=== PATIENT | female | born 1945 | race Caucasian/White ===

== ENCOUNTER 2020-10-01 20:42 | Emergency (ER) | payer OTHER ==
--- OUTSIDE RECORDS SUMMARY | 2020-10-01 20:46 | XMS REPORT | Continuity of Care Document ---
:1945 Author Organization [facility] t Address [address] [place] [address] Care Team Providers Name Role Phone MARITZA SANCHES Primary Care Physician Unavailable José Rubio Attending Clinician Cintia Attending Clinician CINTIA Attending Clinician Unavailable Aleks Sepulveda Attending Clinician CINTIA Admitting Clinician Unavailable Problems Condition Condition Condition Status Onset Resolution Last Treating Co mments Source Name Details Category Date Date Treatment Clinician Date UNK Diagnosis Active 2018-11-10 Mem oria 10-13 09:40:00 l UNK 00:00: [place] 00 Active 10/13/2018 [place] M85.80 - Diagnosis Active 2017-062018-09-19 M emoria OTH DISRD 0-06 15:09:00 l OF BONE M85.80 - 00:01: Kristina nn DENSITY OTH DISRD 00 AND OF BONE DENSITY AND Active 03/14/2018 MH MAC Wilson N95.2 - Diagnosis Active 2017-02-12 Me moria POSTMENOPA 8- 13:32:00 l USAL N95.2 - 00:01: [place] ATROPHIC POSTMENOPA 00 VAGINI N USAL ATROPHIC VAGINI N Active 01/30/2017 MH MAC Wilson V76.11 - Diagnosis Active 2012-03-07 M emoria SCREEN 7-24 16:15:00 l MAMMOGRA V76.11 - 00:01: Herm emelina SCREEN 00 MAMMOGRA Active 12/31/2011 OPID Friendswoo d, OPID [place] Asymptomat Problem 2018-10-21 M emoria ic 12:43:43 l menopausal Sean n state Asymptomat ic menopausal state 10/21/2018 [facility] [place] Dorsalgia, Problem 2018-10-21 M emoria unspecifie 12:43:43 l d [place] Dorsalgia, unspecifie d 10/21/2018 [facility] [place] Spinal Problem 2018-10-21 Memor ia stenosis, 12:43:43 l lumbar Spinal Bassem region stenosis, without lumbar neurogenic region claudicati without on neurogenic claudicati on [facility]21[facility] [place] Acute Problem Resolve 2018-11-11 Jimy shirley cholecysti d 23:11:20 l tis Acute Bassem (disorder) cholecysti tis (disorder) Resolved Problem 11/11/2018 [facility] 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 23:11:20 l of skin Basal [place] (disorder) cell carcinoma of skin (disorder) Resolved Problem 11/11/2018 [facility] Diverticul Problem Resolve 2018-11-11 Memoria itis d 23:11:20 l (disorder) Sean n Diverticul itis (disorder) Resolved Problem 11/11/2018 [facility] Hemorrhoid Problem Resolve 2018-11-11 Memoria s d 23:11:20 l (disorder) Sean n Hemorrhoid s (disorder) Resolved Problem 11/11/2018 [facility] History of Problem Resolve 2018-11-11 Memoria bowel d 23:11:20 l obstructio History Her elam n of bowel (situation obstructio ) n (situation ) Resolved Problem 11/11/2018 [facility] History of Problem Resolve 2018-11-11 Memoria methicilli d 23:11:20 l n History [place] resistant of Staphyloco methicilli ccus n aureus resistant infection Staphyloco (situation ccus ) aureus infection (situation ) Resolved Problem 11/11/2018 [facility] History of Problem Resolve 2018-11-11 Memoria squamous d 23:11:20 l cell History [place] carcinoma of of skin squamous (situation cell ) carcinoma of skin (situation ) Resolved Problem 11/11/2018 [facility] Metatarsop Problem Resolve 2018-11-11 Memoria halangeal d 23:11:20 l joint Bassem stiff Metatarsop (finding) halangeal joint stiff (finding) Resolved Problem 11/11/2018 [facility] Polyp of Problem Resolve 2018-11-11 Me moria colon d 23:11:20 l (disorder) Polyp of He rmann colon (disorder) Resolved Problem 11/11/2018 [facility] Anxiety Problem Active 2018-11-11 Jimy shirley (finding) 23:11:20 l Anxiety [place] (finding) Active Problem 11/11/2018 [facility] Atrial Problem Active 2018-11-11 Memor ia fibrillati 23:11:20 l on Atrial [place] (disorder) fibrillati on (disorder) Active Problem 11/11/2018 [facility] Chronic Problem Active 2018-11-11 Jimy shirley low back 23:11:20 l pain Chronic [place] (disorder) low back pain (disorder) Active Problem 11/11/2018 [facility] Gastroesop Problem Active 2018-11-11 M emoria hageal 23:11:20 l reflux Bassem disease Gastroesop (disorder) hageal reflux disease (disorder) Active Problem 11/11/2018 [facility] Hypertensi Problem Active 2018-11-11 M emoria ve 23:11:20 l disorder, [place] systemic Hypertensi arterial ve (disorder) disorder, systemic arterial (disorder) Active Problem 11/11/2018 [facility] Hypothyroi Problem Active 2018-11-11 emoria dism 23:11:20 l (disorder) Sean n Hypothyroi dism (disorder) Active Problem 11/11/2018 [facility] Peripheral Problem Active 2018-11-11 M emoria vascular 23:11:20 l disease [place] (disorder) Peripheral vascular disease (disorder) Active Problem 11/11/2018 [facility] Urinary Problem Active 2018-11-11 Jimy shirley incontinen 23:11:20 l ce Urinary [place] (finding) incontinen ce (finding) Active Problem 11/11/2018 [facility] History of Past Illness Condition Condition Condition Status Onset Resolution Last Treating Co mments Source Name Details Category Date Date Treatment Clinician Date Other Problem 2017-062018-10-21 2018-10-21 M emoria specified - 12:43:43 12:43:43 l disorders Other 06:11: Sean n of bone specified 02 density disorders and of bone structure, density unspecifie and d site structure, unspecifie d site 04/28/2018 10/21/2018 MAC [place] Allergies, Adverse Reactions, Alerts Allergy Allergy Status Severity Reaction(s) Onset Inactive Treating Comm ents Source Name Type Date Date Clinician sulfa sulfa Active Memoria drugs drugs l [place] Levaquin Levaquin Active Memori a l [place] Bactrim Adverse Active Info Not [facility] Reaction Available [facility] Social History Social Habit Start Date Stop Date Quantity Comments Source Social History 2018-11-03 2018-11-03 [facility] 18:23:19 18:23:19 Medications Ordered Filled Start Stop Current Ordering Indication Dosage Frequency Signature Comments Components Source Medication Medication Date Date Medication? Clinician (SIG) Name Name Oxycodone 2019-0 No 5 mg, 1 Memor ia Hydrochlori 6-03 tab, l de 5 MG 18:07: Route: PO, Herm emelina Oral Tablet 00 POST OP, Dosing Weight 110.818, kg, Start date: 11/09/18 13:07:00 CDT, Duration: 30 day, Stop date: 12/09/18 13:06:00 CDT Ondansetron 2019-0 No 4 mg, Memor ia 6- Route: l 17:17: IVP, ONCE, Dosing Weight 110.818, kg, PRN Nausea & Vomiting, Start date: 11/09/18 12:17:00 CDT Oxycodone 2019-0 No 10 mg, Memori a Hydrochlori 6- Route: PO, l de 5 MG 17:17: Drug form: Herm emelina Oral Tablet 00 TAB, Q4H, Dosing Weight 110.818, kg, PRN Pain Score 7-10, Start date: 11/09/18 12:17:00 CDT, Duration: 30 day, Stop date: 12/09/18 12:16:00 CDT Flumazenil 2019-0 No 0.2 mg, Jimy shirley 6- Route: l 17:17: IVP, PRN, Dosing Weight 110.818, kg, PRN Benzodiaze pine Reversal, Initial dose, Start date: 11/09/18 12:17:00 CDT, Duration: 30 day, Stop date: 12/09/18 12:16:00 CDT Naloxone 2019-0 No 0.4 mg, Memori a 11-09 Route: l 17:17: IVP, Bassem 00 Q2MIN, Dosing Weight 110.818, kg, PRN Narcotic Reversal, Start date: 11/09/18 12:17:00 CDT, Duration: 8 doses or times, Stop date: Limited # of times Fentanyl 2019-0 No 25 Memoria 6-03 microgram, l 17:17: Route: IVP, Q5Min, Dosing Weight 110.818, kg, PRN Pain Score 4-6, Priority: Routine, Start date: 11/09/18 12:17:00 CDT, Duration: 4 doses or times, Stop date: Limited # of times neostigmine 2018- No Route: IV, Memoria (ANES) 11-09 Drug form: l 17:05: INJ, ONCE, Stop date: 11/09/18 12:05:00 CDT glycopyrrol 2018-0 No Route: IV, Memoria ate (ANES) 11-09 Drug form: l 17:05: INJ, ONCE, Stop date: 11/09/18 12:05:00 CDT ondansetron 2018-0 No Route: IV, Memoria (ANES) 11-09 Drug form: l 16:36: INJ, ONCE, Stop date: 11/09/18 11:36:00 CDT dexamethaso 2018-0 No Route: IV, Memoria ne (ANES) 11-09 Drug form: l 16:36: INJ, ONCE, Stop date: 11/09/18 11:36:00 CDT fentaNYL 2018-0 No Route: IV, Mem oria (ANES) 11-09 Drug form: l 16:31: INJ, ONCE, Stop date: 11/09/18 11:31:00 CDT acetaminoph 2018-0 No Route: IV, Memoria en (ANES) 11-09 Drug form: l 15:35: INJ, ONCE, Stop date: 11/09/18 10:35:00 CDT fentaNYL 2019-0 No Route: IV, Mem oria (ANES) 11-09 Drug form: l 15:30: INJ, ONCE, Stop date: 11/09/18 10:30:00 CDT lidocaine 2018-0 No Route: IV, moria (ANES) 11-09 Drug form: l 15:20: INJ, ONCE, [place] Stop date: 11/09/18 10:20:00 CDT rocuronium 2018-0 No Route: IV, M emoria (ANES) 11-09 Drug form: l 15:20: INJ, ONCE, Stop date: 11/09/18 10:20:00 CDT propofol 2019-0 No Route: IV, Mem oria (ANES) 11-09 Drug form: l 15:20: INJ, ONCE, Stop date: 11/09/18 10:20:00 CDT ceFAZolin 2018- No Route: IV, Me moria (ANES) 11-09 Drug form: l 15:05: INJ, ONCE, Stop date: 11/09/18 10:05:00 CDT midazolam 2018-0 No Route: IV, moria (ANES) 11-09 Drug form: l 15:00: SOLN, ONCE, Stop date: 11/09/18 10:00:00 CDT Calcium 2018-0 No 1,000 mL, Memor ia Chloride 11-09 Rate: 75 l 0.0014 14:32: ml/hr, MEQ/ML / 00 Infuse Potassium over: 13.3 Chloride hr, Route: 0.004 IV, Dosing MEQ/ML / Weight Sodium 110.818 Chloride kg, Total 0.103 Volume: MEQ/ML / 1,000, Sodium Start Lactate date: 0.028 11/09/18 MEQ/ML 9:32:00 Injectable CDT, Solution Duration: 30 day, Stop date: 12/09/18 9:31:00 CDT, 2.29, m2 Lactated No Route: IV, Mem oria Ringers 11-09 Total l Injection 14:29: Volume: Kristina nn IV (ANES) 00 1,000, 1000 mL Start date: 11/09/18 9:29:00 CDT, Stop date: 11/09/18 10:29:00 CDT pantoprazol 2018-0 Yes 40 mg = 1 M emoria e 40 mg 5-28 tab, PO, l oral 20:06: Daily, # [place] enteric 00 30 tab, 0 coated Refill(s) tablet tizanidine Yes 2 mg = 1 Mem oria 2 mg oral 5-28 cap, PO, l capsule 20:06: Bedtime, Sean n 00 PRN for muscle spasm, # 30 cap, 0 Refill(s) valacyclovi Yes 1,000 mg, M emoria r 5-28 PO, TID, # l 20:06: 21 tab, 0 Bassem 00 Refill(s) montelukast Yes 10 mg = 1 M emoria 10 mg oral 5-28 tab, PO, l tablet 20:06: Bedtime, # Kristina nn 00 30 tab, 0 Refill(s) sertraline Yes 50 mg = 1 Me moria 50 mg oral 5-28 tab, PO, l tablet 20:05: Daily, # Bassem 00 30 tab, 0 Refill(s) levothyroxi Yes 88 Memori a ne 88 mcg 5-28 microgram l (0.088 mg) 20:05: = 1 tab, Her elam oral tablet 00 PO, Daily, # 30 tab, 0 Refill(s) Hydrochloro Yes 25 mg = 1 M emoria thiazide 25 5-28 tab, PO, l MG Oral 20:04: Daily, # Sean n Tablet 00 30 tab, 0 Refill(s) amLODIPine Yes 10 mg = 1 Me moria 10 mg oral 5-28 tab, PO, l tablet 20:04: Bedtime, 0 Kristina nn 00 Refill(s) metoprolol 2019 Yes 50 mg = 1 Me moria tartrate 50 5-28 tab, PO, l mg oral 20:04: BID, # 60 Kristina nn tablet 00 tab, 0 Refill(s) benazepril Yes 40 mg = 1 Me moria 40 mg oral 5-28 tab, PO, l tablet 20:03: Daily, # [place] 00 30 tab, 0 Refill(s) Pantoprazol Pantoprazol Yes Marivel [address] [facility] e Sodium e Sodium [facility] Amlodipine Amlodipine Yes Marivel [address] [facility] Besylate Besylate [facility] Nitrofurant Nitrofurant Yes Marivle [address] [facility] oin oin [facility] with food [facility]rysta Macrocrysta or milk [facility] Zanaflex Zanaflex Yes Marivel [address] [facility] as needed [facility] Hydrochloro Hydrochloro Yes Marivel [address] [facility] thiazide thiazide [place] in [facility] Benazepril Benazepril Yes Marivel [address] [facility] HCl HCl [facility] Singulair Singulair Yes Marivel [address] [facility] [place] [facility] Zoloft Zoloft Yes Marivel [address] [facility] [place] [facility] Gabapentin Gabapentin Yes Marivel [address] [facility] [place] [facility] Metoprolol Metoprolol Yes Marivel [address] [facility] [address] Tartrate Tartrate [place] with food [facility] Vital Signs Vital Name Observation Time Observation Value Comments Source Systolic (mm Hg) 2018-11-09 19:00:00 Jimy rial [place] Diastolic (mm Hg) 2018-11-09 19:00:00 Mem orial [place] Systolic (mm Hg) 2018-11-09 18:45:00 Jimy rial [place] Diastolic (mm Hg) 2018-11-09 18:45:00 Mem orial [place] Systolic (mm Hg) 2018-11-09 18:30:00 Jimy rial [place] Diastolic (mm Hg) 2018-11-09 18:30:00 Mem orial [place] Respitory Rate 2018-11-09 17:45:00 Grey al [place] Respitory Rate 2018-11-09 17:30:00 Grey Morenoann Respitory Rate 2018-11-09 17:15:00 Grey Mckay Temperature Oral (F) 2018-11-03 20:00:00 98.0 F Sarita Luevano Heart Rate 2018-11-03 20:00:00 Sariat Luevano BMI Calculated 2018-11-03 18:32:00 Membraden al [place] Weight 2018-11-03 18:32:00 [facility] [place] Height 2018-11-03 18:32:00 165.1 cm [facility] [place] Procedures Procedure Date / Time Performing Source Performed Clinician Cardiac catheterization [facility] Cataract extraction [facility] Cholecystectomy [facility] Colonoscopy [facility] Esophagogastroduodenoscopy Memor ial [place] Foot incision [facility] Hysterectomy [facility] [place] Incision and drainage of Memoria l [place] abscess<sup>1</sup> Lateral release of [facility] emelina knee<sup>2</sup> Total knee replacement [facility] Encounters Start End Encounter Admission Attending Care Care Encounter Source Date/Time Date/Time Type Type Clinicians Facility Department ID 2020-05-08 2020-05-08 Outpatient [facility] [id number] [facility] 2019-11-02 2019-11-02 [facility] [id number] [facility] 13:15:00 13:15:00 t Specialty/U Anabel kes - Specialty rology Mem[facility]Urology Clinic l Clinic Outpati ent Clinics 2018-11-09 2018-11-09 Outpatient ALEXIS RubioSE MHSE [id number] 08:30:00 14:15:00 José Puentes 2018-11-09 2018-11-09 Outpatient MHSE [facility]SE [id number] [facility] 08:30:00 08:30:00 [facility] 2018-04-03 2018-04-03 Outpatient STACEY SanchesP MHOIP [id number] 12:03:00 23:59:00 Maritza 05 2017-08-12 2017-08-12 Outpatient [facility] [id number] 10:37:00 10:37:00 [facility] 2017-05-13 2017-05-13 Outpatient [facility] [id number] 10:10:00 10:10:00 [facility] 2017-04-01 2017-04-01 Outpatient [facility] [id number] 10:28:00 10:28:00 [facility] 2017-02-12 2017-02-12 Outpatient STACEY SepulvedaP MHOIP [id number] 13:24:00 23:59:00 [place] [facility] 04 Results Test Description Test Time Test Comments Results Result Sourc e Comments URINE AND STOOL 2018-11-03 1 [facility] 19:38:00 Bassem URINE AND STOOL 2018-11-03 <1 [facility] 19:38:00 Bassem URINE AND STOOL 2018-11-03 Negative [facility] 19:38:00 (11/03/18 2:38 Bassem PM) URINE AND STOOL 2018-11-03 Negative [facility] 19:38:00 (11/03/18 2:38 [place]sem PM) URINE AND STOOL 2018-11-03 Negative [facility] 19:38:00 (11/03/18 2:38 [place] PM) URINE AND STOOL 2018-11-03 Clear (11/03/18 Memor ial 19:38:00 2:38 PM) [place] URINE AND STOOL 2018-11-03 Negative [facility] 19:38:00 *NA*(11/03/18 [place] 2:38 PM) URINE AND STOOL 2018-11-03 19:38:00 Test Item Value Reference Range Interpretation Comme nts UA Spec Grav (test code = UA Spec Grav) 1.010 1 [facility] [id number] 19:38:00 Test Item Value Reference Range Interpretation Comments UA pH (test code = UA pH) 6.0 1 5.0-8.0 [facility]annAMIKACIN:SUSC:PT:ISOLATE:ORDQN:[id number] 19:38:00Klebsiella pneumoniae ssp pneumoniaeMemorial EffheedHLKGVYACOFMI0604-58-99 19:38:0010.8 Memorial HrzfhpwQKVFAXFOSNTY5680-66-94 19:38:0087[facility] HermannELECTROLYTES 2018-11-03 19:38:0027[facility] IoohyuiEVVBDLMMQHCY0340-09-32 19:38:009.5[facility]orial KhntektUXOQARVJIZRS1514-47-47 19:38:97549Dpchfrmz ZsstxenUGBANQGGDYAM4339-73-48 19:38:21609Bjjxhiqv CwpstwcCRSGNVHTKFUY6850-70-29 19:38:000.68[facility] [place] SUSEPOQJZSOV8304-01-22 19:38:0015Memorial BhwfskoZWPOTIFKHDIX3340-09-80 19:38:00 3.8Memorial HsdeiyeAHOCGVIGPNCF2507-52-23 19:38:0090[facility] HermannHEMATOLOGY 2018-11-03 19:38:0033.2[facility] IehorujYBRCEAOLNR2095-70-14 19:38:0013.5[facility] AnwbbvaUAAFGVWHXX1159-48-30 19:38:008.8[facility] AzwkpfuORRVHKFVIF6599-99-35 19:38:42857Gllcegjn KytumtlXYPSZUCGCQ2408-33-48 19:38:0091.3[facility] [place] VBVXNZCZZK6286-79-39 19:38:0040.0[facility] VcifmhaCTEYPAHHQT0173-90-36 19:38:00 6.7[facility]orial ZxnvtfuMVHFTRSUGJ5400-46-53 19:38:00 Test Item Value Reference Range Interpretation Comments MCH (test code = MCH) 30.3 pg 27.0-31.0 [facility] FsgpcdaMPIHPBWHAW2997-97-89 19:38:004.38[facility] HermannHEMATOLOGY 2018-11-03 19:38:0013.3[facility] FiefxnuITEAWEUXIX9077-74-64 19:38:00 Test Item Value Reference Range Interpretation Comments PTT (test code = PTT) 41.4 s 22.9-35.8 [facility] RnipzyyTBGSSXWDIK8540-82-66 19:38:00 Test Item Value Reference Range Interpretation Comments PT (test code = PT) 12.9 s 12.0-14.7 [facility] [id number] 19:38:00 Test Item Value Reference Range Interpretation Comments INR (test code = INR) 0.99 1 0.85-1.17 [facility] GpkblaoXJXCMXJWOL7109-66-23 19:38:009.0[facility] HermannHEMATOLOGY 2018-11-03 19:38:0017.6[facility]orial QaicigrDMJDNXHPVG0924-19-88 19:38:000.emorial HofnagiHSDIJPTHML9383-00-69 19:38:002.5[facility]orial HvdjpviZDEAIQAZOR8818-27-97 19:38:000.6[facility] EzyaiozRECXYQZZFP2384-56-26 19:38:001.2[facility] [place] QOFZBUPFTC5857-00-59 19:38:004.7[facility] EqscsgyAKLMOQFFGV0850-84-99 19:38:000.2 [facility] AqblpxeNEKCMEIUQZ9303-24-77 19:38:0070.3[facility] HermannXR Knee 1 or 2 Views Ykmh6291-67-17 12:39:55Patient: SUKHJINDER VIRGEN Date/Time03/11/2018 12:06 CDTReason for ExamothertReportEXAM: XR KNEE 2 VIEWS, LEFTINDICATION: PainCOMPARISON: August 12, 2017TECHNIQUE: AP and lateral views of the left knee.FINDINGS:No acute fracture or dislocation is identified. There is a total left knee arthroplasty with no evidence of hardware complication. No suprapatellar joint effusion. No soft tissue abnormality is identified.IMPRESSION:Total left knee arthroplasty with no evidence of hardware complication.LOCATION: R16 Final Dictated by: MD Lorenzo Melanie CDictated DT/TM: 03/11/2018 12:38 pmSigned by: MD Lorenzo Melanie CSigned (Electronic Signature): 03/11/2018 12:39 pmXR KNEE 2V.-LEFT 2017-08-12 11:02:45XR KNEE 2V.-LEFTLOCATION: R16 INDICATION:M17.12: UNILATERAL PRIMARY OSTEOARTHRITIS, LEFT KNEECOMPARISON: Left knee radiographs 05/13/2017DISCUSSION:Frontal and lateral radiographs of the left knee (withweight bearing)were submitted for interpretation (2 total).Postsurgical changes related to total knee arthroplasty and patellarresurfacing are noted.There is no evidence for hardware failure or loosening.No new fracture of dislocation is seen.The joint spaces are preserved.IMPRESSION:1. Status post knee arthroplasty.2. No acute osseous abnormalities.XR KNEE 2V.-[id number] 10:35:07EXAM: XR KNEE 2 VIEWS, LEFTINDICATION: OsteoarthritisCOMPARISON: April 01, 2017TECHNIQUE: AP and lateral views of the left knee.FINDINGS: There is a total left knee arthroplasty with no evidence of hardwarecomplication. No acute fracture or dislocation is identified. No osseouslesions. No suprapatellar joint effusion. No soft tissue abnormality isidentified.IMPRESSION: Total left knee arthroplasty with no evidence of hardware complication.LOCATION: R16XR KNEE 2V.-[id number] 11:08:36XR KNEE 2V.-LEFTCLINICAL INFORMATION: M17.12: UNILATERAL PRIMARY OSTEOARTHRITIS, LEFTKNEE COMPARISONS: February 24, 2017FINDINGS:Weightbearing AP and lateral images of the left knee were obtained.Postsurgical changes of total knee arthroplasty are identified. Thereis no evidence of hardware loosening or failure. Alignment is anatomic. A trace suprapatellar joint effusion has decreased in size fromthecomparison study.IMPRESSION: 1. Status post total knee arthroplasty.2. Trace suprapatellar joint effusion. Location: [id number], Crossmatch 00:42:00 Test Item Value Reference Range Interpretation Comments Product 1 Code (test code = E4533 PRODCODE1) Unit 1 ID (test code = [id number] UNITID1) Unit 1 ABO (test code = B UNITABO1) Unit 1 Rh (test code = POS UNITRH1) Unit 1 Interp (test code = Compatible UNITINTERP1) Unit 1 Status (test code = RE UNITSTAT1) Product 2 Code (test code = E4533 PRODCODE2) Unit 2 ID (test code = [id number] UNITID2) Unit 2 ABO (test code = B UNITABO2) Unit 2 Rh (test code = POS UNITRH2) Unit 2 Interp (test code = Compatible UNITINTERP2) Unit 2 Status (test code = RE UNITSTAT2) Basic Metabolic [id number] 06:48:00 Test Item Value Reference Range Interpretation Comments Sodium (test code = 136 mmol/L 135-145 N NA) Potassium (test 4.0 mmol/L 3.5-5.1 N code = K) Chloride (test code 98 mmol/L 98-105 N = CL) Carbon Dioxide 27 mmol/L 22-29 N (test code = CO2) Glucose (test code 101 mg/dL 70-115 N = GLU) Blood Urea Nitrogen 12 mg/dL 8-23 N (test code = BUN) Creatinine (test 0.7 mg/dL 0.5-0.9 N code = CREAT) Calcium (test code 8.3 mg/dL 8.3-10.5 N = CA) BUN/Creatinine 17.1 Ratio (test code = BCRATIO) Anion Gap (test 11 mmol/L 7-16 N code = AGAP) Estimated GFR (test >60 eGFR (es timated code = GFR) mL/min/1.73m2 Glomerular Isak tration Rate) is an est imated value,calculate d from the patient's s stef creatinine usin g the MDRD equation.I t is NOT the patient 's actual GFR. The eGFR provides a more clinicallyusefu l measure of kidn ey disease than se rum creatinine alone.This calculation alanis es sex and race into account, if the informationis provided. If th e race is not provided , and the patient isAfrican-Ameri can, multiply by 1.2 12. If sex is not prov ided, and thepatient is female, multipl y by 0.742. Results for patients <18 ye ars ofage have not been validated by th e MDRD study and shoul d be interpretedwith caution.eGFR Re sult Interpretation: eGFR > or = 60 is in t he Normal RangeeGF R < 60 may mean kidney diseaseeGFR < 1 5 may mean kidney failureRange s recommended by the National Kidney Foundation,http ://nkd ep.nih.gov [id number] 08:04:00 Test Item Value Reference Range Interpretation Comments WBC (test code = WBC) 13.3 K/cumm 4.4-10.5 H RBC (test code = RBC) 3.35 M/cumm 3.75-5.20 L Hemoglobin (test code = HGB) 9.4 gm/dL 12.2-14.8 L Hematocrit (test code = HCT) 28.7 % 36.5-44.4 L MCV (test code = MCV) 85.7 fL 80-100 N MCH (test code = MCH) 28.2 pg 27.0-32.5 N MCHC (test code = MCHC) 32.9 g/dL 32.0-37.5 N RDW (test code = RDW) 15.6 % 11.5-14.5 H Platelet Count (test code = 215 K/cumm 140-440 N PLTCT) MPV (test code = MPV) 7.4 fL Basic Metabolic [id number] 06:39:00 Test Item Value Reference Range Interpretation Comments Sodium (test code = 136 mmol/L 135-145 N NA) Potassium (test 4.4 mmol/L 3.5-5.1 N code = K) Chloride (test code 99 mmol/L 98-105 N = CL) Carbon Dioxide 28 mmol/L 22-29 N (test code = CO2) Glucose (test code 125 mg/dL 70-115 H = GLU) Blood Urea Nitrogen 15 mg/dL 8-23 N (test code = BUN) Creatinine (test 0.7 mg/dL 0.5-0.9 N code = CREAT) Calcium (test code 8.5 mg/dL 8.3-10.5 N = CA) BUN/Creatinine 21.4 Ratio (test code = BCRATIO) Anion Gap (test 9 mmol/L 7-16 N code = AGAP) Estimated GFR (test >60 eGFR (es timated code = GFR) mL/min/1.73m2 Glomerular Isak tration Rate) is an est imated value,calculate d from the patient's s stef creatinine usin g the MDRD equation.I t is NOT the patient 's actual GFR. The eGFR provides a more clinicallyusefu l measure of kidn ey disease than se rum creatinine alone.This calculation alanis es sex and race into account, if the informationis provided. If th e race is not provided , and the patient isAfrican-Ameri can, multiply by 1.2 12. If sex is not prov ided, and thepatient is female, multipl y by 0.742. Results for patients <18 ye ars ofage have not been validated by th e MDRD study and shoul d be interpretedwith caution.eGFR Re sult Interpretation: eGFR > or = 60 is in t he Normal RangeeGF R < 60 may mean kidney diseaseeGFR < 1 5 may mean kidney failureRange s recommended by the National Kidney Foundation,http ://nkd ep.nih.gov XR KNEE 2V.-[id number] 11:43:03EXAM: XR LEFT KNEE 2 VIEWS INDICATION: PostopCOMPARISON: None availableTECHNIQUE: AP and lateral views of the left knee.FINDINGS: Interval placement of total left knee arthroplasty. No evidence ofhardware complication. There is subcutaneous emphysema within the softtissues and surgical avelina overlying the left knee consistent withrecent surgery. No acute fracture or dislocation is identified. Noosseous lesions. IMPRESSION: Interval placement of total left knee arthroplasty with no evidence ofhardware complication.LOCATION: [id number] Type and [id number] 07:12:00 Test Item Value Reference Range Interpretation Comments ABO type (test code = ABO) B Rh Type (test code = RH) Positive Antibody Screen - [id number] 07:12:00 Test Item Value Reference Range Interpretation Comments Antibody Screen (test code = ABSCR) Negative Prothrombin [id number] 06:50:00 Test Item Value Reference Range Interpretation Comments PT (test code = PT) 11.60 seconds 9.78-13.35 N INR (test code = INR) 1.02 Ratio 0.6-1.2 N Partial Thromboplastin [id number] 06:50:00 Test Item Value Reference Range Interpretation Comments aPTT (test code = PTT) 32.80 seconds 24.39-37.25 N Culture, [id number] 10:35:00Specimen: UrineCollected: 02/11/2017 14:22 Status: Final Last Updated: 02/13/2017 10:35 Culture Result (Final) (Final) 02/12/17 No growth 24 hours 02/13/17 No growth 48 hoursCulture, Nasal 2017-02-13 10:32:00Specimen: NasalCollected: 02/11/2017 14:22 Status: Final Last Updated: 02/13/2017 10:32 Culture Result (Final) (Final) 02/12/17 Normal joseph at 24 hours 02/13/17 Normal joseph at 48 hoursComprehensive Metabolic [id number] 15:11:00 Test Item Value Reference Range Interpretation Comments Sodium (test code = 138 mmol/L 135-145 N NA) Potassium (test 3.9 mmol/L 3.5-5.1 N code = K) Chloride (test code 97 mmol/L 98-105 L = CL) Carbon Dioxide 29 mmol/L 22-29 N (test code = CO2) Glucose (test code 99 mg/dL 70-115 N = GLU) Blood Urea Nitrogen 16 mg/dL 8-23 N (test code = BUN) Creatinine (test 0.8 mg/dL 0.5-0.9 N code = CREAT) Calcium (test code 9.8 mg/dL 8.3-10.5 N = CA) Prot Total (test 7.1 g/dL 6.4-8.3 N code = TP) Albumin (test code 4.3 g/dL 3.5-5.2 N = ALB) A/G Ratio (test 1.5 Ratio code = AGRATIO) Globulin (test code 2.8 2.9-3.1 L = GLOB) Bili Total (test 0.3 mg/dL 0.1-0.9 N code = TBIL) Alk Phos (test code 82 U/L 35-104 N = APHOS) AST (test code = 15 U/L 1-32 N AST) ALT (test code = 13 U/L 1-33 N ALT) BUN/Creatinine 20.0 Ratio (test code = BCRATIO) Anion Gap (test 12 mmol/L 7-16 N code = AGAP) Estimated GFR (test >60 eGFR (es timated code = GFR) mL/min/1.73m2 Glomerular Isak tration Rate) is an est imated value,calculate d from the patient's s stef creatinine usin g the MDRD equation.I t is NOT the patient 's actual GFR. The eGFR provides a more clinicallyusefu l measure of kidn ey disease than se rum creatinine alone.This calculation alanis es sex and race into account, if the informationis provided. If th e race is not provided , and the patient isAfrican-Ameri can, multiply by 1.2 12. If sex is not prov ided, and thepatient is female, multipl y by 0.742. Results for patients <18 ye ars ofage have not been validated by th e MDRD study and shoul d be interpretedwith caution.eGFR Re sult Interpretation: eGFR > or = 60 is in t he Normal RangeeGF R < 60 may mean kidney diseaseeGFR < 1 5 may mean kidney failureRange s recommended by the National Kidney Foundation,http ://nkd ep.nih.gov CBC with [id number] 15:08:00 Test Item Value Reference Range Interpretation Comments WBC (test code = WBC) 8.0 K/cumm 4.4-10.5 N RBC (test code = RBC) 4.42 M/cumm 3.75-5.20 N Hemoglobin (test code = HGB) 12.5 gm/dL 12.2-14.8 N Hematocrit (test code = HCT) 37.0 % 36.5-44.4 N MCV (test code = MCV) 83.7 fL 80-100 N MCH (test code = MCH) 28.2 pg 27.0-32.5 N MCHC (test code = MCHC) 33.7 g/dL 32.0-37.5 N RDW (test code = RDW) 16.0 % 11.5-14.5 H Platelet Count (test code = 242 K/cumm 140-440 N PLTCT) MPV (test code = MPV) 8.2 fL Diff Method (test code = DIFFM) Auto Neutrophil (test code = NEUT) 71.3 % 36-70 H Lymphocyte (test code = LYMPH) 20.4 % 12-44 N Monocyte (test code = MONO) 5.2 % 0-11 N Eosinophil (test code = EOS) 2.7 % 0-7 N Basophil (test code = BASO) 0.5 % 0-2 N Neutro Abs (test code = ANEUT) 5.7 K/cumm 1.6-7.4 N Lymph Abs (test code = ALYMPH) 1.6 K/cumm 0.5-4.6 N [place] Abs (test code = AMONO) 0.4 K/cumm 0.0-1.2 N Eos Abs (test code = AEOS) 0.21 K/cumm 0.00-0.74 N Baso Abs (test code = ABASO) 0.0 K/cumm 0.00-0.21 N Prothrombin [id number] 15:08:00 Test Item Value Reference Range Interpretation Comments PT (test code = PT) 16.30 seconds 9.78-13.35 H INR (test code = INR) 1.43 Ratio 0.6-1.2 H Partial Thromboplastin [id number] 15:08:00 Test Item Value Reference Range Interpretation Comments aPTT (test code = PTT) 38.10 seconds 24.39-37.25 H Glycosylated [id number] 15:06:00 Test Item Value Reference Range Interpretation Comments HBA1c (test code = HBA1C) 5.8 % 4.8-5.9 N Urinalysis [id number] 14:57:00 Test Item Value Reference Range Interpretation Comments Color (test code = COLOR) Yellow Yellow,Straw,Pl N yellow Clarity (test code = Clear Clear N CLAR) Specific [place] (test 1.013 1.001-1.035 N code = SPGR) pH (test code = PH) 6.5 5.0-9.0 N Ketone (test code = KET) Negative mg/dL Negative N Glucose (test code = Negative mg/dL Negative N GLUCUR) Protein (test code = Negative mg/dL Negative N PROT) Bilirubin (test code = Negative mg/dL Negative N BILI) Occult Blood (test code = Negative Negative N UDOB) Urobilinogen (test code = 0.2 mg/dL 0.2-1.0 N UROB) Nitrite (test code = NIT) Negative Negative N Leuk Esterase (test code Negative Negative N = LEUK) Micros Exam (test code = Not indicated MEXAM) XR CHEST 2V, [id number] 12:59:38EXAM: Chest x-ray, 2 viewsLOCATION: [id number]: NoneINDICATION: M17.2: BILATERAL POST-TRAUMATIC OSTEOARTHRITIS OF KNEE DISCUSSION:Mild bibasilar opacities may be due to atelectasis or scarring.Otherwise, no consolidation, pleural effusion, or pneumothorax is seen. The cardiac silhouette is mildly prominent.Mild aortic calcifications are present. No acute osseous abnormalities are identified. Surgical clips are seen over the upper abdomen.IMPRESSION:1. Mild bibasilar opacities may be due to atelectasis or scarring.2. Mildly prominent cardiac silhouette.Follow-up PA and lateral chest radiographs in 4-6 weeks are recommended.[id number] 04:58:00 Test Item Value Reference Range Interpretation Comments Hemoglobin (test code = HGB) 7.7 gm/dL 12.2-14.8 L Basic Metabolic [id number] 06:18:00 Test Item Value Reference Range Interpretation Comments Sodium (test code = 134 mmol/L 135-145 L NA) Potassium (test 3.8 mmol/L 3.5-5.1 N code = K) Chloride (test code 93 mmol/L 98-105 L = CL) Carbon Dioxide 31 mmol/L 22-29 H (test code = CO2) Glucose (test code 116 mg/dL 70-115 H = GLU) Blood Urea Nitrogen 14 mg/dL 8-23 N (test code = BUN) Creatinine (test 0.8 mg/dL 0.5-0.9 N code = CREAT) Calcium (test code 8.5 mg/dL 8.3-10.5 N = CA) BUN/Creatinine 17.5 Ratio (test code = BCRATIO) Anion Gap (test 10 mmol/L 7-16 N code = AGAP) Estimated GFR (test >60 eGFR (es timated code = GFR) mL/min/1.73m2 Glomerular Isak tration Rate) is an est imated value,calculate d from the patient's s stef creatinine usin g the MDRD equation.I t is NOT the patient 's actual GFR. The eGFR provides a more clinicallyusefu l measure of kidn ey disease than se rum creatinine alone.This calculation alanis es sex and race into account, if the informationis provided. If th e race is not provided , and the patient isAfrican-Ameri can, multiply by 1.2 12. If sex is not prov ided, and thepatient is female, multipl y by 0.742. Results for patients <18 ye ars ofage have not been validated by th e MDRD study and shoul d be interpretedwith caution.eGFR Re sult Interpretation: eGFR > or = 60 is in t he Normal RangeeGF R < 60 may mean kidney diseaseeGFR < 1 5 may mean kidney failureRange s recommended by the National Kidney Foundation,http ://nkd ep.nih.gov CBC with [id number] 05:55:00 Test Item Value Reference Range Interpretation Comments WBC (test code = WBC) 8.4 K/cumm 4.4-10.5 N RBC (test code = RBC) 2.57 M/cumm 3.75-5.20 L Hemoglobin (test code = HGB) 7.4 gm/dL 12.2-14.8 L Hematocrit (test code = HCT) 22.4 % 36.5-44.4 L MCV (test code = MCV) 87.3 fL 80-100 N MCH (test code = MCH) 28.7 pg 27.0-32.5 N MCHC (test code = MCHC) 32.8 g/dL 32.0-37.5 N RDW (test code = RDW) 16.7 % 11.5-14.5 H Platelet Count (test code = 264 K/cumm 140-440 N PLTCT) MPV (test code = MPV) 9.3 fL Diff Method (test code = DIFFM) Auto Neutrophil (test code = NEUT) 77.9 % 36-70 H Lymphocyte (test code = LYMPH) 13.1 % 12-44 N Monocyte (test code = MONO) 5.9 % 0-11 N Eosinophil (test code = EOS) 2.8 % 0-7 N Basophil (test code = BASO) 0.2 % 0-2 N Neutro Abs (test code = ANEUT) 6.6 K/cumm 1.6-7.4 N Lymph Abs (test code = ALYMPH) 1.1 K/cumm 0.5-4.6 N [place] Abs (test code = AMONO) 0.5 K/cumm 0.0-1.2 N Eos Abs (test code = AEOS) 0.24 K/cumm 0.00-0.74 N Baso Abs (test code = ABASO) 0.0 K/cumm 0.00-0.21 N RBC, Crossmatch 00:54:00 Test Item Value Reference Range Interpretation Comments Product 1 Code (test code = E0336 PRODCODE1) Unit 1 ID (test code = [id number] UNITID1) Unit 1 ABO (test code = B UNITABO1) Unit 1 Rh (test code = POS UNITRH1) Unit 1 Interp (test code = Compatible UNITINTERP1) Unit 1 Status (test code = RE UNITSTAT1) Product 2 Code (test code = E0336 PRODCODE2) Unit 2 ID (test code = [id number] UNITID2) Unit 2 ABO (test code = B UNITABO2) Unit 2 Rh (test code = POS UNITRH2) Unit 2 Interp (test code = Compatible UNITINTERP2) Unit 2 Status (test code = RE UNITSTAT2) CBC with [id number] 06:22:00 Test Item Value Reference Range Interpretation Comments WBC (test code = WBC) 9.0 K/cumm 4.4-10.5 N RBC (test code = RBC) 2.78 M/cumm 3.75-5.20 L Hemoglobin (test code = HGB) 8.0 gm/dL 12.2-14.8 L Hematocrit (test code = HCT) 24.9 % 36.5-44.4 L MCV (test code = MCV) 89.7 fL 80-100 N MCH (test code = MCH) 28.7 pg 27.0-32.5 N MCHC (test code = MCHC) 32.0 g/dL 32.0-37.5 N RDW (test code = RDW) 17.1 % 11.5-14.5 H Platelet Count (test code = 194 K/cumm 140-440 N PLTCT) MPV (test code = MPV) 8.1 fL Diff Method (test code = DIFFM) Auto Neutrophil (test code = NEUT) 78.1 % 36-70 H Lymphocyte (test code = LYMPH) 12.0 % 12-44 N Monocyte (test code = MONO) 7.8 % 0-11 N Eosinophil (test code = EOS) 2.0 % 0-7 N Basophil (test code = BASO) 0.2 % 0-2 N Neutro Abs (test code = ANEUT) 7.0 K/cumm 1.6-7.4 N Lymph Abs (test code = ALYMPH) 1.1 K/cumm 0.5-4.6 N [place] Abs (test code = AMONO) 0.7 K/cumm 0.0-1.2 N Eos Abs (test code = AEOS) 0.18 K/cumm 0.00-0.74 N Baso Abs (test code = ABASO) 0.0 K/cumm 0.00-0.21 N Thyroid Stimulating Hormone (TSH)2016-09-27 07:48:00 Test Item Value Reference Range Interpretation Comments TSH (test code = TSH) 1.52 mIU/mL 0.270-4.200 N [id number] 07:26:00 Test Item Value Reference Range Interpretation Comments Hemoglobin (test code = HGB) 8.6 gm/dL 12.2-14.8 L Basic Metabolic [id number] 07:10:00 Test Item Value Reference Range Interpretation Comments Sodium (test code = 135 mmol/L 135-145 N NA) Potassium (test 4.3 mmol/L 3.5-5.1 N code = K) Chloride (test code 97 mmol/L 98-105 L = CL) Carbon Dioxide 30 mmol/L 22-29 H (test code = CO2) Glucose (test code 129 mg/dL 70-115 H = GLU) Blood Urea Nitrogen 15 mg/dL 8-23 N (test code = BUN) Creatinine (test 0.8 mg/dL 0.5-0.9 N code = CREAT) Calcium (test code 8.7 mg/dL 8.3-10.5 N = CA) BUN/Creatinine 18.8 Ratio (test code = BCRATIO) Anion Gap (test 8 mmol/L 7-16 N code = AGAP) Estimated GFR (test >60 eGFR (es timated code = GFR) mL/min/1.73m2 Glomerular Isak tration Rate) is an est imated value,calculate d from the patient's s stef creatinine usin g the MDRD equation.I t is NOT the patient 's actual GFR. The eGFR provides a more clinicallyusefu l measure of kidn ey disease than se rum creatinine alone.This calculation alanis es sex and race into account, if the informationis provided. If th e race is not provided , and the patient isAfrican-Ameri can, multiply by 1.2 12. If sex is not prov ided, and thepatient is female, multipl y by 0.742. Results for patients <18 ye ars ofage have not been validated by th e MDRD study and shoul d be interpretedwith caution.eGFR Re sult Interpretation: eGFR > or = 60 is in t he Normal RangeeGF R < 60 may mean kidney diseaseeGFR < 1 5 may mean kidney failureRange s recommended by the National Kidney Foundation,http ://nkd ep.nih.gov [id number] 07:05:00 Test Item Value Reference Range Interpretation Comments Hemoglobin (test code = HGB) 10.1 gm/dL 12.2-14.8 L Basic Metabolic [id number] 07:04:00 Test Item Value Reference Range Interpretation Comments Sodium (test code = 134 mmol/L 135-145 L NA) Potassium (test 3.9 mmol/L 3.5-5.1 N code = K) Chloride (test code 94 mmol/L 98-105 L = CL) Carbon Dioxide 29 mmol/L 22-29 N (test code = CO2) Glucose (test code 128 mg/dL 70-115 H = GLU) Blood Urea Nitrogen 22 mg/dL 8-23 N (test code = BUN) Creatinine (test 0.9 mg/dL 0.5-0.9 N code = CREAT) Calcium (test code 8.7 mg/dL 8.3-10.5 N = CA) BUN/Creatinine 24.4 Ratio (test code = BCRATIO) Anion Gap (test 11 mmol/L 7-16 N code = AGAP) Estimated GFR (test >60 eGFR (es timated code = GFR) mL/min/1.73m2 Glomerular Isak tration Rate) is an est imated value,calculate d from the patient's s stef creatinine usin g the MDRD equation.I t is NOT the patient 's actual GFR. The eGFR provides a more clinicallyusefu l measure of kidn ey disease than se rum creatinine alone.This calculation alanis es sex and race into account, if the informationis provided. If th e race is not provided , and the patient isAfrican-Ameri can, multiply by 1.2 12. If sex is not prov ided, and thepatient is female, multipl y by 0.742. Results for patients <18 ye ars ofage have not been validated by th e MDRD study and shoul d be interpretedwith caution.eGFR Re sult Interpretation: eGFR > or = 60 is in t he Normal RangeeGF R < 60 may mean kidney diseaseeGFR < 1 5 may mean kidney failureRange s recommended by the National Kidney Foundation,http ://nkd ep.nih.gov Antibody Screen - [id number] 09:41:00 Test Item Value Reference Range Interpretation Comments Antibody Screen (test code = ABSCR) Negative Blood Type and [id number] 09:25:00 Test Item Value Reference Range Interpretation Comments ABO type (test code = ABO) B Rh Type (test code = RH) Positive Partial Thromboplastin [id number] 08:30:00 Test Item Value Reference Range Interpretation Comments aPTT (test code = PTT) 36.50 seconds 24.39-37.25 N Prothrombin [id number] 08:22:00 Test Item Value Reference Range Interpretation Comments PT (test code = PT) 12.30 seconds 9.78-13.35 N INR (test code = INR) 1.08 Ratio 0.6-1.2 N Culture, [id number] 11:02:00Specimen: NasalCollected: 09/19/2016 13:18 Status: Final Last Updated: 09/21/2016 11:02 Culture Result (Final) (Final) 09/20/16 Normal joseph at 24 hours 09/21/16 Normal joseph at 48 hours Comprehensive Metabolic [id number] 14:25:00 Test Item Value Reference Range Interpretation Comments Sodium (test code = 141 mmol/L 135-145 N NA) Potassium (test 4.0 mmol/L 3.5-5.1 N code = K) Chloride (test code 99 mmol/L 98-105 N = CL) Carbon Dioxide 30 mmol/L 22-29 H (test code = CO2) Glucose (test code 81 mg/dL 70-115 N = GLU) Blood Urea Nitrogen 15 mg/dL 8-23 N (test code = BUN) Creatinine (test 0.8 mg/dL 0.5-0.9 N code = CREAT) Calcium (test code 9.8 mg/dL 8.3-10.5 N = CA) Prot Total (test 7.2 g/dL 6.4-8.3 N code = TP) Albumin (test code 4.5 g/dL 3.5-5.2 N = ALB) A/G Ratio (test 1.7 Ratio code = AGRATIO) Globulin (test code 2.7 2.9-3.1 L = GLOB) Bili Total (test 0.6 mg/dL 0.1-0.9 N code = TBIL) Alk Phos (test code 72 U/L 35-104 N = APHOS) AST (test code = 18 U/L 1-32 N AST) ALT (test code = 14 U/L 1-33 N ALT) BUN/Creatinine 18.8 Ratio (test code = BCRATIO) Anion Gap (test 12 mmol/L 7-16 N code = AGAP) Estimated GFR (test >60 eGFR (es timated code = GFR) mL/min/1.73m2 Glomerular Isak tration Rate) is an est imated value,calculate d from the patient's s stef creatinine usin g the MDRD equation.I t is NOT the patient 's actual GFR. The eGFR provides a more clinicallyusefu l measure of kidn ey disease than se rum creatinine alone.This calculation alanis es sex and race into account, if the informationis provided. If th e race is not provided , and the patient isAfrican-Ameri can, multiply by 1.2 12. If sex is not prov ided, and thepatient is female, multipl y by 0.742. Results for patients <18 ye ars ofage have not been validated by e MDRD study and shoul d be interpretedwith caution.eGFR Re sult Interpretation: eGFR > or = 60 is in t he Normal RangeeGF R < 60 may mean kidney diseaseeGFR < 1 5 may mean kidney failureRange s recommended by the National Kidney Foundation,http ://nkd ep.nih.gov Prothrombin [id number] 14:03:00 Test Item Value Reference Range Interpretation Comments PT (test code = PT) 15.00 seconds 9.78-13.35 H INR (test code = INR) 1.33 Ratio 0.6-1.2 H Partial Thromboplastin [id number] 14:03:00 Test Item Value Reference Range Interpretation Comments aPTT (test code = PTT) 39.00 seconds 24.39-37.25 H CBC with [id number] 13:59:00 Test Item Value Reference Range Interpretation Comments WBC (test code = WBC) 8.6 K/cumm 4.4-10.5 N RBC (test code = RBC) 4.52 M/cumm 3.75-5.20 N Hemoglobin (test code = HGB) 12.6 gm/dL 12.2-14.8 N Hematocrit (test code = HCT) 39.7 % 36.5-44.4 N MCV (test code = MCV) 87.9 fL 80-100 N MCH (test code = MCH) 27.9 pg 27.0-32.5 N MCHC (test code = MCHC) 31.8 g/dL 32.0-37.5 L RDW (test code = RDW) 16.7 % 11.5-14.5 H Platelet Count (test code = 255 K/cumm 140-440 N PLTCT) MPV (test code = MPV) 7.8 fL Diff Method (test code = DIFFM) Auto Neutrophil (test code = NEUT) 73.2 % 36-70 H Lymphocyte (test code = LYMPH) 17.1 % 12-44 N Monocyte (test code = MONO) 7.3 % 0-11 N Eosinophil (test code = EOS) 2.1 % 0-7 N Basophil (test code = BASO) 0.3 % 0-2 N Neutro Abs (test code = ANEUT) 6.3 K/cumm 1.6-7.4 N Lymph Abs (test code = ALYMPH) 1.5 K/cumm 0.5-4.6 N [place] Abs (test code = AMONO) 0.6 K/cumm 0.0-1.2 N Eos Abs (test code = AEOS) 0.18 K/cumm 0.00-0.74 N Baso Abs (test code = ABASO) 0.0 K/cumm 0.00-0.21 N Glycosylated [id number] 13:53:00 Test Item Value Reference Range Interpretation Comments HBA1c (test code = HBA1C) 5.9 % 4.8-5.9 N
--- NOTE | 2020-10-01 22:20 | ER ---
Nurse's Notes [facility] Name: Margo Flor Age: 74 yrs Sex: Female : 1945 Arrival Date: 10/01/2020 Time: 21:13 Bed Waiting Private MD: Diagnosis: ED Course: 10/01 21:13 Patient arrived in ED. ag3 21:34 Patient's name was called from ER lobby. No response. bb 22:19 Patient's name was called from ER lobby. No response. Unable to locate patient. Will bb disposition as left without being seen by a provider. Administered Medications: No medications were administered Outcome: 22:20 Patient left the ED. bb Signatures: Julisa Brice RN RN bb Latanya Fierro ag3
== END 2020-10-01 22:20 | disposition left against medical advice (07) ==
LOC: ER 20:42
DX: Z02.9 Encounter for administrative examinations, unspecified (principal)